=== PATIENT | female | born 1985 | race African-American/Black ===

== ENCOUNTER 2016-12-02 02:02 | Emergency (ER) | payer OTHER ==
[~2016-12-02 02:02] MED LIST: A/B OTIC DROPS AU; AEROBID7 GM; ALBUTEROL INHALER INH; AMOXICILLIN500 M1 PO; BACTRIM DS TABL1 TAB PO; CIPRO XR 500 M500 MG PO; DICLOFENAC PO; DICYCLOMINE HCL20 MG PO; DIFLUCAN PO; MAXZIDE 75/50 T1 TAB PO; NORCO1 TAB 10/3 PO; NORVASC PO; PEPCID AC20 M2 PO; PRENATAL1 TA1 PO; REGLAN10 MG PO; ZITHROMAX PO; [UNRECOGNIZED DRUG - OTHER] PO
== END 2016-12-02 02:58 | disposition home or self-care (01) ==
LOC: CED 02:02
DX: L02.415 Cutaneous abscess of right lower limb (principal); I10 Essential (primary) hypertension; J45.909 Unspecified asthma, uncomplicated; Z79.899 Other long term (current) drug therapy; Z88.0 Allergy status to penicillin; Z91.040 Latex allergy status; Z88.8 Allergy status to other drugs, medicaments and biological substances
CPT/HCPCS: 10060; 82947; 99283

== ENCOUNTER 2016-12-04 01:56 | Emergency (ER) | payer OTHER ==
[2016-12-04 03:27] LABS: BASOPHIL# 0.1 X10e3 (0-0.3); BASOPHIL% 0.7 % (0-2.5); EOSINOPHIL# 0.2 X10e3 (0-0.7); EOSINOPHIL% 2.7 % (0.0-7.0); HEMATOCRIT 35.8 % (35.0-45.0); HEMOGLOBIN 11.3 gm/dL (12.0-16.0); LYMPHOCYTE# 1.9 X10e3 (1.0-3.5); LYMPHOCYTE% 23.1 % (17.0-45.0); MEAN CELL VOLUME 80.3 FL (83-96); MEAN CORPUSCULAR HEMOGLOBIN 25.4 PG (28-34); MEAN CORPUSCULAR HGB CONC 31.6 g/dL (30-36); MEAN PLATELET VOLUME 8.4 FL (6.5-11.5); MONOCYTE# 0.5 X10e3 (0-1.0); MONOCYTE% 6.7 % (3.0-12.0); NEUTROPHIL# 5.4 X10e3 (1.5-7.1); NEUTROPHIL% 66.8 % (40-75); PLATELET COUNT 196 X10e3 (140-420); RED BLOOD COUNT 4.46 X10e (3.90-5.30); WHITE BLOOD COUNT 8.1 X10e3 (4.0-10.5)
[2016-12-04 03:28] LABS: DIFF IND NO
[2016-12-04 03:47] LABS: BUN/CREATININE RATIO 21.25; CALCIUM SERUM 8.5 mg/dL (8.4-10.2); CREATININE SERUM 0.8 mg/dL (0.6-1.4); GLOM FILT RATE Estimated 112.4 mL/min (>60); POTASSIUM 3.9 mmol/L (3.5-5.1)
== END 2016-12-04 04:20 | disposition home or self-care (01) ==
LOC: CED 01:56
PROVIDERS: Nurse Practitioner
DX: L03.115 Cellulitis of right lower limb (principal); I10 Essential (primary) hypertension; J45.909 Unspecified asthma, uncomplicated; Z88.0 Allergy status to penicillin; Z88.8 Allergy status to other drugs, medicaments and biological substances; Z79.899 Other long term (current) drug therapy
CPT/HCPCS: 10060; 36415; 80048; 85025; 87070; 87077; 87186; 87205; 96361; 96374; 99283; J1885